=== PATIENT | male | born 1950 | race Caucasian/White ===

== ENCOUNTER 2017-04-21 20:36 | Emergency (ER) | payer OTHER, MEDICARE ==
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
[2017-04-21 21:11] LABS: CHLORIDE,CL 101 mmol/L (101-111); SODIUM,NA 137 mmol/L (135-145)
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
== END 2017-04-21 22:47 | disposition home or self-care (01) ==
LOC: DL.ED 20:36
DX: Z04.3 Encounter for examination and observation following other accident (principal); R07.89 Other chest pain; V89.2XXA Person injured in unspecified motor-vehicle accident, traffic, initial encounter
CPT/HCPCS: 36415; 70450; 71250; 72125; 72131; 74176; 80053; 84484; 85025; 85610; 85730; 86850; 86900; 86901; 99285; G0480